=== PATIENT | female | born 1990 | race Caucasian/White ===

== ENCOUNTER 2019-08-26 18:15 | Emergency (ER) | payer OTHER ==
[2019-08-26 18:20] VITALS: BMI 28.3
--- NOTE | 2019-08-26 18:22 | PDOC ---
Rapid Medical Evaluation Chief Complaint: Palpitations Time Seen by Provider: 08/26/19 18:19 Medical Evaluation: Allergies Allergy/AdvReac Type Severity Reaction Status Date / Time No Known Allergies Allergy Verified 08/26/19 18:20 Vital Signs Temp Pulse Resp BP Pulse Ox 100.4 F H 131 H 18 144/88 100 08/26/19 18:16 08/26/19 18:16 08/26/19 18:16 08/26/19 18:16 08/26/19 18:16 08/26/19 18:21 I have performed a brief in-person evaluation of this patient. The patient presents with a chief complaint of: palpitations feels anxious, told the same in the past, no blood work done with episodes Pertinent physical exam findings: 131, lcta, no resp distres I have ordered the following: labs, ekg The patient will proceed to the ED for further evaluation. Discharge Disposition - Diagnosis Palpitations - Discharge Dispostion Disposition: HOME Condition at time of disposition: Stable - Referrals - Patient Instructions Printed Discharge Instructions: DI for Anxiety -- Adult Additional Instructions: You were seen in the Emergency Department for evaluation of palpitations. Your labs and imaging were unremarkable. You were treated with hydroxyzine 25mg once. Review the handout provided at discharge. Follow up with your primary care provider within a week. Return to the Emergency Department if you develop fevers, chest pain, trouble breathing, worsening symptoms, or any new/ concerning symptoms. - Post Discharge Activity
[2019-08-26] MEDS ORDERED: SODIUM CHLORIDE 0.9% 500 ML INFUS.BAG IV ONE (18:39)
--- NOTE | 2019-08-26 18:39 | PDOC ---
History of Present Illness - General Chief Complaint: Palpitations Stated Complaint: PALPITATION Time Seen by Provider: 08/26/19 18:19 - History of Present Illness Initial Comments: The pt is a 28F w/ no reported PMH who presents for evaluation of 1 day of palpitations. They started at rest and are associated with feelings of anxiety, being flushed, and warmth. She reports having symptoms like this before and undergoing a cardiac and thyroid workup without any significant findings. She reports having symptoms like this intermittently that being and resolve spontaneously and is not associated with physical activity. She states she gets 'blood work' frequently but it has been normal as far as she knows. She denies fevers/chills, chest pain, trouble breathing, abdominal pain, N/V/C/D , dysuria, hematuria, or changes in sensation. Deneis recent travel, OCP use, history of DVT/PE, family history of DVT/PE, or history of malignancy 08/26/19 19:08 Past History - Past Medical History Allergies/Adverse Reactions: Allergies Allergy/AdvReac Type Severity Reaction Status Date / Time No Known Allergies Allergy Verified 08/26/19 18:20 COPD: No - Psycho Social/Smoking Cessation Hx Smoking History: Never smoked Review of Systems - Review of Systems Able to Perform ROS?: Yes Comments:: GENERAL/CONSTITUTIONAL: No fever or chills. No weakness HEAD, EYES, EARS, NOSE AND THROAT: No change in vision. No change in hearing. No sore throat CARDIOVASCULAR: No chest pain or shortness of breath RESPIRATORY: Denies cough, hemoptysis GASTROINTESTINAL: No nausea, vomiting, diarrhea or constipation GENITOURINARY: No dysuria, frequency, or change in urination MUSCULOSKELETAL: No joint or muscle swelling or pain. No neck or back pain SKIN: No rash NEUROLOGIC: No headache, vertigo, loss of consciousness, or change in strength/ sensation ENDOCRINE: No increased thirst. No abnormal weight change HEMATOLOGIC/LYMPHATIC: No anemia, easy bleeding, or history of blood clots ALLERGIC/IMMUNOLOGIC: No hives or skin allergy 08/26/19 18:38 Is the patient limited Monegasque proficient: No *Physical Exam - Vital Signs Last Vital Signs Temp Pulse Resp BP Pulse Ox 100.4 F H 131 H 18 144/88 100 08/26/19 18:16 08/26/19 18:16 08/26/19 18:16 08/26/19 18:16 08/26/19 18:16 - Physical Exam GENERAL: Awake, alert, and oriented to person/place/time, in no acute distress HEAD: No signs of trauma, normocephalic, atraumatic EYES: PERRLA, EOMI, sclera anicteric, conjunctiva clear ENT: Hearing grossly normal, nares patent, oropharynx clear without exudates. Moist mucosa LUNGS: No distress, speaks in full sentences, clear to auscultation bilaterally HEART: Tachycardic rate with regular rhythm, normal S1 and S2, no murmurs appreciated, peripheral pulses normal and equal bilaterally ABDOMEN: Soft, nontender, normoactive bowel sounds. No guarding, no rebound EXTREMITIES: Normal inspection, Normal range of motion, no edema. No clubbing or cyanosis NEUROLOGICAL: Cranial nerves II through XII grossly intact. Normal speech, normal gait, no focal sensorimotor deficits SKIN: Warm, Dry 08/26/19 18:38 ED Treatment Course - LABORATORY CBC & Chemistry Diagram: 08/26/19 19:13 08/26/19 19:13 Medical Decision Making - Medical Decision Making The pt is a 28F w/ no reported PMH who presents for evaluation of 1 day of palpitations. ED Course Labs sent ECG CXR IVF and Tylenol for symptomatic relief 08/26/19 19:12 No significant leukocytosis No anemia Plt wnl Trop I neg CK wnl 08/26/19 19:52 ECG w/ sinus tachycardia; HR 140; QTc 415; incomplete RBBB, no axis deviation, no MARKEL, abn ecg 08/26/19 19:56 D-dimer neg TSH wnl Serum preg neg Pt with HR 99-114 Pt continues to feel anxious Will give Hydroxyzine 20mg PO once 08/26/19 21:21 Repeat HR 92 Pt denies symptoms at this time Plan for D/C w/ PCP f/u Discharge instructions and return precautions given Patient in agreement and verbalized understanding Dispo: Home 08/26/19 22:13 Discharge - Discharge Information Problems reviewed: Yes Clinical Impression/Diagnosis: Palpitations Condition: Stable Disposition: HOME - Admission No - Follow up/Referral - Patient Discharge Instructions Patient Printed Discharge Instructions: DI for Anxiety -- Adult Additional Instructions: You were seen in the Emergency Department for evaluation of palpitations. Your labs and imaging were unremarkable. You were treated with hydroxyzine 25mg once. Review the handout provided at discharge. Follow up with your primary care provider within a week. Return to the Emergency Department if you develop fevers, chest pain, trouble breathing, worsening symptoms, or any new/ concerning symptoms. - Post Discharge Activity
[2019-08-26] MEDS ORDERED: ACETAMINOPHEN 325 MG TABLET (FP) PO ONE (19:13)
[2019-08-26 19:21] LABS: BASO % 0.5 % (0-2.0); EOS % 1.3 % (0-4.5); HEMATOCRIT 38.5 % (32.4-45.2); HEMOGLOBIN 12.5 GM/dL (10.7-15.3); LYMPH % 16.5 % (8-40); MCH 27.7 pg (25.7-33.7); MCHC 32.4 g/dl (32.0-36.0); MEAN CELL VOLUME 85.4 fl (80-96); MEAN PLT VOLUME 8.4 fl (7.5-11.1); MONO % 2.8 % (3.8-10.2); NEUT % 78.9 % (42.8-82.8); PLATELET COUNT 335 K/MM3 (134-434); RDW 13.7 % (11.6-15.6); WHITE BLOOD COUNT 10.3 K/mm3 (4.0-10.0)
[2019-08-26] MEDS ORDERED: ACETAMINOPHEN 325 MG TABLET (FP) ONE (19:34)
--- NOTE | 2019-08-26 19:55 | PDOC ---
Documentation entered by Maylin Ross SCRIBE, acting as scribe for Jolie Gore DO. Jolie Gore DO: This documentation has been prepared by the mari, Maylin Ross SCRIBE, under my direction and personally reviewed by me in its entirety. I confirm that the documentation accurately reflects all work, treatment, procedures, and medical decision making performed by me. Attending Attestation - Resident Resident Name: Сергей Mcintyre - ED Attending Attestation I have performed the following: I have examined & evaluated the patient, The case was reviewed & discussed with the resident, I agree w/resident's findings & plan, Exceptions are as noted - HPI HPI: 08/26/19 19:36 Patient is a 28 year old female with no significant PMH who presents to the ED for 1 day of palpitations. Patient states the palpitations began at rest and are associated with anxiety, being flushed, and warmth. She reports having symptoms like this before and undergoing a cardiac and thyroid workup without any significant findings. She denies recent fevers, chills, headache or dizziness. She denies recent nausea, vomit, diarrhea or constipation. She denies recent dysuria, frequency, urgency or hematuria. She denies recent chest pain or shortness of breath. 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 - didn't know she was running a fever -has had halter, cardiac workup, thyroid eval in the past with palpitations -pt states she has anxiety but has never seen a therapist -pt denies all somatic complaints other than heart racing -will send labs, tsh, dimer -will hydrate, fever control -will monitor and reassess 08/26/19 20:20 tsh normal, trop neg dimer pending mildly elevated wbc serum preg neg 08/26/19 21:04 dimer neg 08/26/19 21:21 discussed labs pt states she feels anxious will dose hydroxyzine in the ER and monitor 08/26/19 22:08 pt feeling much better HR 92 stable for dc to home Heart Score/ECG Review - ECG Intrepretation Comment:: 08/26/19 19:55 sinus tach at 140, incomplete rbbb, lvh, abnl ekg-poss rate related changes
[2019-08-26 20:07] LABS: BILIRUBIN,TOTAL 0.2 mg/dL (0.2-1); BLOOD UREA NITROGEN 15.8 mg/dL (7-18); CALCIUM 8.9 mg/dL (8.5-10.1); CREATININE 0.7 mg/dL (0.55-1.3); TOT PROT 7.3 g/dl (6.4-8.2)
[2019-08-26] MEDS ORDERED: hydrOXYzine PAMOATE 25 MG CAPSULE (FP) PO ONE ×2 (21:20→21:30)
[2019-08-26 21:45] VITALS: BP 142/78; TEMP 99
[2019-08-26 22:15] VITALS: PULSE 92
--- NOTE | 2019-08-27 14:05 | EKG ---
Test Reason : Blood Pressure : / mmHG Vent. Rate : 140 BPM Atrial Rate : 140 BPM P-R Int : 138 ms QRS Dur : 102 ms QT Int : 272 ms P-R-T Axes : 060 -01 -02 degrees QTc Int : 415 ms SINUS TACHYCARDIA INCOMPLETE RIGHT BUNDLE BRANCH BLOCK MINIMAL VOLTAGE CRITERIA FOR LVH, MAY BE NORMAL VARIANT NONSPECIFIC ST AND T WAVE ABNORMALITY ABNORMAL ECG NO PREVIOUS ECGS AVAILABLE Confirmed by SOUMYA LASSITER MD ([id number]) on 08/27/2019 2:04:47 PM Referred By: Confirmed By:SOUMYA LASSITER MD
== END 2019-08-26 22:17 | disposition home or self-care (01) ==
LOC: JER 18:15
DX: R00.2 Palpitations (principal); F41.9 Anxiety disorder, unspecified
CPT/HCPCS: 36415; 71045-TC-FY; 80053; 82550; 84443; 84484; 84703; 85025; 85379; 93005; 93010; 99284-25